=== PATIENT | female | born 1985 | race Hispanic/Latino ===

== ENCOUNTER 2018-11-25 12:43 | Inpatient (IN) | payer MEDICAID | END 2018-12-01 16:50 | disposition home or self-care (01) | LOC: EDH 12:43 → WSH 11-27 10:00 → LDH 13:13 | PROC: 10D00Z1 Extraction of Products of Conception, Low, Open Approach (ICD-10-PCS; principal; 2018-11-29 12:00) | DX: O42.113 Preterm premature rupture of membranes, onset of labor more than 24 hours following rupture, third trimester (principal); Z37.0 Single live birth; Z3A.34 34 weeks gestation of pregnancy ==